=== PATIENT | female | born 1970 | race Two or more races ===

== ENCOUNTER → 2016-08-28 20:33 | Outpatient (CLI) | payer SELFPAY ==
[2016-08-28 23:19] LABS: BASOPHILS 0.4 % (0-2); EOSINOPHILS 2.8 % (0-7); HEMATOCRIT 44.1 % (36.0-48.0); HEMOGLOBIN 14.6 g/dL (12-16); LYMPHOCYTES 36.4 % (15-50); MCH 30.7 pg (26.0-34.0); MCHC 33.1 g/dL (31.0-37.0); MCV 92.6 fL (80.0-100.0); MONOCYTES 6.4 % (2-11); PLATELET COUNT 236 10x3/uL (130-400); RBC 4.76 10x6/uL (4.00-5.40); RDW 13.7 % (11.5-14.5); WBC 7.6 10x3/uL (4.8-10.8)
[2016-08-28 23:51] LABS: HEMOGLOBIN A1C 5.6 % (4.8-6.0)
== END | disposition home or self-care (01) ==
LOC: D.LABREF 20:33
PROVIDERS: Internal Medicine Nephrology
DX: K21.9 Gastro-esophageal reflux disease without esophagitis (principal); R10.9 Unspecified abdominal pain